=== PATIENT | male | born 1965 | race Caucasian/White ===

== ENCOUNTER → 2018-07-30 | Outpatient (CLI) | payer OTHER ==
[~2018-07-30] MED LIST: DIAZ2TAB PO; GABA-826 PO; GABA300C10 PO; LISI-167 PO; LISI1TAB3 PO; MELO15TA24 PO; PANT40TA3 PO; PANT40TA5 PO; ROSU10TA2 PO; ZOLP-413 PO
[2018-07-30 15:00] LABS: BASOPHILS # (AUTO) 0.03 x10^3/uL (0-0.1); BASOPHILS % (AUTO) 0 % (0-1); EOSINOPHILS # (AUTO) 0.27 x10^3/uL (0-0.4); EOSINOPHILS % (AUTO) 3 % (1-7); LYMPHOCYTES # (AUTO) 3.16 x10^3/uL (1-3.4); LYMPHOCYTES % (AUTO) 38 % (22-44); MD NO; MEAN CORPUSCULAR HEMOGLOBIN 34.6 pg (27.5-34.5); MEAN CORPUSCULAR HGB CONC 32.8 g/dL (33.2-36.2); MEAN CORPUSCULAR VOLUME 105.6 fL (81-97); MEAN PLATELET VOLUME 7.6 fL (7.4-10.4); MONOCYTES # (AUTO) 0.61 x10^3/uL (0.2-0.8); MONOCYTES % (AUTO) 7 % (2-9); NEUTROPHILS # (AUTO) 4.27 x10^3/uL (1.8-6.8); NEUTROPHILS % (AUTO) 51 % (42-75); PLATELET COUNT 329 x10^3/uL (130-400); RED BLOOD COUNT 4.88 x10^6/uL (4.38-5.82)
[2018-07-30 15:04] LABS: INTERNATIONAL NORMALIZED RATIO 1.01 (0.93-1.1); PROTHROMBIN TIME 10.6 Seconds (9.6-11.5)
[2018-07-30 15:06] LABS: ALBUMIN 4.3 g/dL (3.4-5.0); ANION GAP 8 mmol/L (5-15); CALCIUM 9.3 mg/dL (8.5-10.1); CHLORIDE 105 mmol/L (98-107)
[2018-07-30 15:09] LABS: ALANINE AMINOTRANSFERASE 42 U/L (12-78); ALKALINE PHOSPHATASE 56 U/L (45-117); BILIRUBIN,TOTAL 0.7 mg/dL (0.2-1.0); CREATININE 1.29 mg/dL (0.7-1.3); TOTAL PROTEIN 7.5 g/dL (6.4-8.2)
[2018-07-30 15:18] LABS: HEMOGLOBIN A1C 6.2 % (4.2-6.3)
== END | disposition home or self-care (01) ==
LOC: STAR 13:35
PROVIDERS: ATTEND Orthopaedic Surgery
DX: M25.552 Pain in left hip (principal); M25.551 Pain in right hip; M25.561 Pain in right knee; M17.9 Osteoarthritis of knee, unspecified
CPT/HCPCS: 36415; 80053; 83036; 85025; 85610; 85730; 87081

== ENCOUNTER 2018-08-06 07:28 | Observation (INO) | payer OTHER ==
[~2018-08-06] VITALS: Ht 182.9 cm; Wt 122.0 kg
[2018-08-06] MEDS: NS + 20MEQ KCL 1,000 ML IV SCH (06:45)
[~2018-08-06 07:28] MED LIST changes: +ACETAMINOPHEN 650 MG/20.3 ML UDC PO PRN; +BISACODYL 10 MG SUPP PR PRN; +DIPHENHYDRAMINE 50 MG CAPSULE PO PRN; +EPINEPHRINE 1 MG/ML, 1ML ONE; +HYDROcodone/APAP 5/325 TABLET PO PRN; +KETOROLAC 60 MG/2 ML ONE; +MAGNESIUM HYDROXIDE 8%, 30ML UDC PO PRN; +ONDANSETRON 4 MG TABLET PO PRN; +OXYcodone IR 5MG TABLET PO PRN; +ROPIvacaine/PF 0.5%, 30 ML ONE; +SCOPOLAMINE PATCH, 1.5MG PATCH.TD72 TD ONE; +SENNA/DOCUSATE TABLET PO PRN; +SODIUM CHLORIDE 0.9% 50 ML ONE; +TRANEXAMIC ACID 100 MG/ML, 10ML ONE; +VANCOMYCIN 1,000 MG ONE
[2018-08-06] MEDS ORDERED: LACTATED RINGERS 1,000 ML IV SCH (08:21)
[2018-08-06] MEDS ORDERED: GABAPENTIN 300 MG CAPSULE PO ONE (08:30)
[2018-08-06] MEDS ORDERED: ACETAMINOPHEN 500 MG TABLET PO ONE (08:30)
[2018-08-06] MEDS ORDERED: MIDAZOLAM 1 MG/ML, 2ML ONE (08:51)
[2018-08-06] MEDS ORDERED: FENTANYL PF 250 MCG/5ML ONE ×2 (08:51→10:38)
[2018-08-06] MEDS ORDERED: GABAPENTIN 300 MG CAPSULE ONE (08:55)
[2018-08-06] MEDS ORDERED: ACETAMINOPHEN 500 MG TABLET ONE (08:55)
[2018-08-06] MEDS ORDERED: ROPIvacaine/PF 0.2%, 20 ML ONE (08:56)
[2018-08-06] MEDS ORDERED: CEFAZOLIN 1,000 MG ONE (08:57)
[2018-08-06] MEDS ORDERED: NEOSTIGMINE 1 MG/ML, 10ML ONE (08:57)
[2018-08-06] MEDS ORDERED: ROCURONIUM 10MG/ML,5ML ONE (08:57)
[2018-08-06] MEDS ORDERED: GLYCOPYRROLATE 0.2MG/1ML, 5ML ONE (08:57)
[2018-08-06] MEDS ORDERED: PROPOFOL 10 MG/ML, 20ML ONE (08:57)
[2018-08-06] MEDS ORDERED: LISINOPRIL 10 MG TABLET PO SCH (09:00)
[2018-08-06] MEDS ORDERED: PANTOPROZOLE 40MG TABLET PO SCH (09:00)
[2018-08-06] MEDS ORDERED: GABAPENTIN 300 MG CAPSULE PO SCH (09:00)
[2018-08-06] MEDS ORDERED: DOCUSATE 100 MG CAPSULE PO SCH (09:00)
[2018-08-06] MEDS ORDERED: FENTANYL PF 100 MCG/2ML IV PRN (10:00)
[2018-08-06] MEDS ORDERED: PROMETHAZINE 25 MG/ML, 1ML IV PRN (10:00)
[2018-08-06] MEDS ORDERED: PROMETHAZINE 25 MG SUPP PR PRN (10:00)
[2018-08-06] MEDS ORDERED: MEPERIDINE/PF 25MG/0.5ML IVPush PRN (10:00)
[2018-08-06] MEDS ORDERED: MORPHINE SULFATE 4 MG/ML, 1ML IVPush PRN (10:00)
[2018-08-06] MEDS ORDERED: ONDANSETRON 2MG/ML, 2ML IV PRN (10:00)
[2018-08-06] MEDS ORDERED: PROMETHAZINE 25 MG/ML, 1ML IM PRN ×2 (10:00)
[2018-08-06] MEDS ORDERED: ONDANSETRON ODT 8 MG PO PRN (10:00)
[2018-08-06] MEDS ORDERED: hydrALAzine 20 MG/ML, 1ML IV PRN (10:00)
[2018-08-06] MEDS ORDERED: LABETALOL 5MG/ML, 20ML IV PRN (10:00)
[2018-08-06] MEDS ORDERED: PROMETHAZINE 12.5 MG SUPP PR PRN (10:00)
[2018-08-06] MEDS ORDERED: OXYcodone 5 MG/5 ML ORAL.SOL UDC PO PRN (10:00)
[2018-08-06] MEDS ORDERED: FENTANYL PF 100 MCG/2ML ONE (11:48)
[2018-08-06] MEDS ORDERED: HYDROmorphone 2 MG/ML, 1ML ONE ×2 (11:49→15:30)
[2018-08-06] MEDS ORDERED: OXYcodone 5 MG/5 ML ORAL.SOL UDC ONE (11:49)
[2018-08-06] MEDS: HYDROmorphone 2 MG/ML, 1ML IVPush PRN ×5 (12:01→12:38)
[2018-08-06] MEDS: ONDANSETRON 2MG/ML, 2ML IV PRN ×2 (13:48→19:52)
[2018-08-06] MEDS: OXYcodone IR 5MG TABLET PO PRN ×3 (13:56→22:58)
[2018-08-06 14:00] VITALS: BP 138/81
[2018-08-06] MEDS ORDERED: MAGNESIUM HYDROXIDE 8%, 30ML UDC PO PRN (14:00)
[2018-08-06] MEDS ORDERED: ACETAMINOPHEN 650 MG/20.3 ML UDC PO PRN (14:00)
[2018-08-06] MEDS ORDERED: HYDROcodone/APAP 5/325 TABLET PO PRN (14:00)
[2018-08-06] MEDS ORDERED: BISACODYL 10 MG SUPP PR PRN (14:00)
[2018-08-06] MEDS ORDERED: [UNRECOGNIZED DRUG - REMARK] MC SCH (14:00)
[2018-08-06] MEDS ORDERED: DIPHENHYDRAMINE 50 MG CAPSULE PO PRN (14:00)
[2018-08-06] MEDS ORDERED: SENNA/DOCUSATE TABLET PO PRN (14:00)
[2018-08-06] MEDS ORDERED: ONDANSETRON 4 MG TABLET PO PRN (14:00)
[2018-08-06] MEDS: HYDROmorphone 1 MG/ML, 1ML INJ IV PRN (15:33)
[2018-08-06] MEDS ORDERED: OXYC5CAP2 PO (15:47)
[2018-08-06] MEDS ORDERED: TRAM50TA2 PO (15:48)
[2018-08-06] MEDS ORDERED: ASPIRIN 81 MG TABLET EC PO SCH (18:00)
[2018-08-06] MEDS: ASPIRIN 81 MG TABLET EC PO SCH (18:03)
[2018-08-06] MEDS: CEFAZOLIN PMX 2GM/50ML 50 ML IVPB SCH (18:09)
[2018-08-06 19:28] VITALS: BP 109/67
[2018-08-06] MEDS ORDERED: ATORVASTATIN 40 MG TABLET PO SCH (21:00)
[2018-08-06] MEDS ORDERED: ZOLPIDEM 5MG TABLET PO SCH (21:00)
[2018-08-06] MEDS: GABAPENTIN 300 MG CAPSULE PO SCH (22:58)
[2018-08-06] MEDS: LISINOPRIL 10 MG TABLET PO SCH (22:58)
[2018-08-06] MEDS: DOCUSATE 100 MG CAPSULE PO SCH (22:58)
[2018-08-07 00:44] VITALS: BP 107/65
[2018-08-07] MEDS ORDERED: HYDROmorphone 2 MG/ML, 1ML ONE (00:55)
[2018-08-07] MEDS: HYDROmorphone 1 MG/ML, 1ML INJ IV PRN (01:07)
[2018-08-07] MEDS: CEFAZOLIN PMX 2GM/50ML 50 ML IVPB SCH (02:21)
[2018-08-07 04:05] VITALS: BP 115/70
[2018-08-07] MEDS: OXYcodone IR 5MG TABLET PO PRN ×3 (04:10→12:54)
[2018-08-07] MEDS: ASPIRIN 81 MG TABLET EC PO SCH (05:51)
[2018-08-07] MEDS: NS + 20MEQ KCL 1,000 ML IV SCH ×2 (05:51→07:21)
[2018-08-07] MEDS ORDERED: DEXAMETHASONE 4 MG/ML, 1ML IVPush SCH ×2 (06:00)
[2018-08-07 06:45] VITALS: BP 110/70
[2018-08-07] MEDS: DOCUSATE 100 MG CAPSULE PO SCH (08:43)
[2018-08-07] MEDS: GABAPENTIN 300 MG CAPSULE PO SCH (08:43)
[2018-08-07] MEDS: LISINOPRIL 10 MG TABLET PO SCH (08:43)
[2018-08-07] MEDS ORDERED: PANTOPROZOLE 40MG TABLET PO SCH (09:00)
== END 2018-08-07 12:35 | disposition home or self-care (01) ==
LOC: OUT 07:28 → 4NOR 13:05 → OUT 20:42 → 4NOR 20:42 → DCLOUNGE 08-07 12:24
PROVIDERS: ADMIT Orthopaedic Surgery; ATTEND Orthopaedic Surgery
DX: M17.12 Unilateral primary osteoarthritis, left knee (principal); Z79.899 Other long term (current) drug therapy
CPT/HCPCS: 27447; 36415; 85014; 85018; 96365; 96366; 96375; 96376; 97116; 97161; 97166; 97530; C1713; C1776; G0378; J0171; J0690; J1100; J1170; J1885; J2250; J2405; J2704; J2710; J2795; J3010; J3370; J7120